=== PATIENT | male | born 1960 | race Caucasian/White ===

== ENCOUNTER 2016-07-03 20:29 | Inpatient (IN) | payer BC ==
[~2016-07-03] VITALS: Ht 182.9 cm; Wt 84.2 kg
[2016-07-03] MEDS ORDERED: OPTIRAY 350 100 ML VIAL HMH IV ONE (20:30)
[2016-07-03] MEDS ORDERED: CYCLOBENZAPRINE 10 MG TAB ONE (21:20)
[2016-07-03] MEDS ORDERED: MORPHINE 4 MG/ML SYR ONE (21:20)
[2016-07-04] MEDS ORDERED: HEPARIN 5,000 UNITS/ML **DVT/PE IV PRN (00:45)
[2016-07-04] MEDS ORDERED: HEPARIN 20,000 UNIT/500 ML *DVT/PE IV SCH (00:45)
[2016-07-04] MEDS ORDERED: SODIUM CHLORIDE 0.9% 1,000 ML ONE (00:49)
[2016-07-04] MEDS: DUONEB INH SCH ×7 (00:50→23:06)
[2016-07-04] MEDS ORDERED: SALINE FLUSH 10 ML FLUSH PRN (00:50)
[2016-07-04] MEDS ORDERED: ONDANSETRON 4 MG VIAL IV PRN (00:50)
[2016-07-04] MEDS ORDERED: hePARIN 20,000 UNITS in SODIUM CHLORIDE 0.9% 500 ML IV SCH (00:50)
[2016-07-04 02:41] VITALS: BMI 24.9
[2016-07-04 02:42] VITALS: BP_SYST 116; RESP 16; TEMP 97.9
[2016-07-04] MEDS ORDERED: MORPHINE 4 MG/ML SYR IV ONE (02:55)
[2016-07-04] MEDS: SALINE FLUSH 10 ML FLUSH SCH ×3 (03:00→20:00)
[2016-07-04] MEDS: SODIUM CHLORIDE 0.9% 1,000 ML IV SCH ×2 (03:00→15:30)
[2016-07-04] MEDS: HEPARIN 20,000 UNIT/500 ML *DVT/PE IV SCH ×2 (03:00→15:50)
[2016-07-04 03:10] VITALS: RESP 16
[2016-07-04] MEDS: SODIUM CHLORIDE 0.9% FLUSH BAG 500 ML IV SCH (04:48)
[2016-07-04 07:42] VITALS: BP_SYST 107; RESP 16; TEMP 97.8
[2016-07-04 10:20] VITALS: Ht 182.9 cm; Wt 84.2 kg
[2016-07-04] MEDS: HEPARIN 5,000 UNITS/ML **DVT/PE IV PRN ×2 (10:46→18:39)
[2016-07-04] MEDS: MORPHINE 2 MG/ML SYR IV PRN ×4 (11:21→17:36)
[2016-07-04 12:04] VITALS: BP_SYST 112; RESP 18; TEMP 97.3
[2016-07-04] MEDS ORDERED: MISSING DOSE XX ONE (15:35)
[2016-07-04 20:01] VITALS: BP_SYST 128; RESP 18; TEMP 98.2
[2016-07-04] MEDS: MORPHINE 4 MG/ML SYR IV PRN (21:08)
[2016-07-04] MEDS ORDERED: MORPHINE 2 MG/ML SYR IV PRN (22:20)
[2016-07-04 23:20] VITALS: BP_SYST 125; RESP 16; TEMP 98.1
[2016-07-05] MEDS ORDERED: MISSING DOSE XX ONE (00:10)
[2016-07-05] MEDS: MORPHINE 4 MG/ML SYR IV PRN (00:59)
[2016-07-05] MEDS: HEPARIN 5,000 UNITS/ML **DVT/PE IV PRN (01:50)
[2016-07-05] MEDS: HEPARIN 20,000 UNIT/500 ML *DVT/PE IV SCH ×3 (01:53→20:33)
[2016-07-05] MEDS: DUONEB INH SCH ×6 (02:59→23:22)
[2016-07-05 03:30] VITALS: BP_SYST 125; RESP 18; TEMP 97.9
[2016-07-05] MEDS: SODIUM CHLORIDE 0.9% FLUSH BAG 500 ML IV SCH (04:07)
[2016-07-05] MEDS: SODIUM CHLORIDE 0.9% 1,000 ML IV SCH (04:15)
[2016-07-05] MEDS: LORAZEPAM 0.5 MG TAB PO PRN ×2 (05:06→22:51)
[2016-07-05 07:36] VITALS: BP_SYST 121; RESP 18; TEMP 97.7
[2016-07-05] MEDS: SALINE FLUSH 10 ML FLUSH SCH ×2 (08:00→20:00)
[2016-07-05 10:44] VITALS: BP_SYST 117; RESP 20; TEMP 97.9
[2016-07-05] MEDS: DOCUSATE SOD 100 MG CAP PO SCH ×2 (12:21→20:34)
[2016-07-05] MEDS: KETOROLAC 15 MG/ML VIAL IV SCH ×2 (12:28→16:36)
[2016-07-05 14:47] VITALS: BP_SYST 143; RESP 20; TEMP 98
[2016-07-05 19:28] VITALS: BP_SYST 117; RESP 18; TEMP 97.7
[2016-07-05 23:40] VITALS: BP_SYST 106; RESP 18; TEMP 98
[2016-07-06] MEDS: KETOROLAC 15 MG/ML VIAL IV SCH ×2 (00:05→07:49)
[2016-07-06] MEDS: SODIUM CHLORIDE 0.9% FLUSH BAG 500 ML IV SCH (00:36)
[2016-07-06] MEDS: DUONEB INH SCH ×3 (03:00→11:06)
[2016-07-06 03:58] VITALS: BP_SYST 117; RESP 16; TEMP 98.1
[2016-07-06] MEDS ORDERED: MISSING DOSE XX ONE (05:50)
[2016-07-06] MEDS: SODIUM CHLORIDE 0.9% 1,000 ML IV SCH (05:51)
[2016-07-06] MEDS: HEPARIN 20,000 UNIT/500 ML *DVT/PE IV SCH (07:12)
[2016-07-06] MEDS: SALINE FLUSH 10 ML FLUSH SCH (07:48)
[2016-07-06] MEDS: DOCUSATE SOD 100 MG CAP PO SCH (07:49)
[2016-07-06 07:54] VITALS: BP_SYST 131; RESP 15; TEMP 98
[2016-07-06 11:37] VITALS: BP_SYST 133; RESP 15; TEMP 97.4
[2016-07-06 14:02] VITALS: BP_SYST 133; RESP 15; TEMP 97.4
[2016-07-06 14:05] VITALS: BP_SYST 133; RESP 15; TEMP 97.4
[2016-07-06] MEDS ORDERED: Rivaroxaban 15 MG TAB PO SCH (17:00)
== END 2016-07-06 15:39 | disposition home or self-care (01) | DRG 176 ==
LOC: ER 20:29 → ENPENDDIS 07-04 00:46 → EMR 07-04 00:46 → 5THE 07-04 02:17
PROVIDERS: ADMIT Family Medicine; ATTEND Family Medicine
CPT/HCPCS: 36415; 71020; 71260; 80053; 82553; 83880; 84484; 85025; 85610; 85730; 93005; 93306; 93970; 94640; 94799; 96361; 96365; 96372; 99222; 99223; 99231; 99232; 99233; 99238